=== PATIENT | female | born 1965 | race Caucasian/White ===

== ENCOUNTER 2017-06-02 21:54 | Emergency (ER) | payer OTHER ==
[~2017-06-02] VITALS: Ht 167.6 cm; Wt 70.0 kg
[2017-06-02 22:03] VITALS: BP 150/90; PULSE 73; RESP 18; TEMP 97.9; O2SAT 99
[2017-06-02 22:43] LABS: AUTOMATED NEUTROPHIL # 1.7 TH/MM3 (1.8-7.7); BASOPHIL % 0.8 % (0.0-2.0); EOSINOPHIL # 0.1 TH/MM3 (0-0.4); EOSINOPHIL % 1.1 % (0.0-4.0); HEMATOCRIT 44.2 % (35.0-46.0); HEMO FLAGS DIFF FINAL; LYMPH % 54.1 % (9.0-44.0); LYMPHOCYTE # 2.5 TH/MM3 (1.0-4.8); MEAN CELL VOLUME 104.4 FL (80.0-100.0); MEAN CORPUSCULAR HEMOGLOBIN 35.6 PG (27.0-34.0); MEAN CORPUSCULAR HGB CONC 34.1 % (32.0-36.0); MONO % 6.3 % (0.0-8.0); NEUT % 37.7 % (16.0-70.0); PLATELET COUNT 193 TH/MM3 (150-450); RED BLOOD COUNT 4.23 MIL/MM3 (4.00-5.30); RED CELL DISTRIBUTION WIDTH 13.4 % (11.6-17.2); WHITE BLOOD COUNT 4.6 TH/MM3 (4.0-11.0)
[2017-06-02 23:00] LABS: ALT (GPT) 30 U/L (10-53); ANION GAP 7 MEQ/L (5-15); AST (GOT) 48 U/L (15-37); BLOOD UREA NITROGEN 5 MG/DL (7-18); CHLORIDE 110 MEQ/L (98-107); GLOMERULAR FILTRATION RATE 100 ML/MIN (>89); POTASSIUM 3.4 MEQ/L (3.5-5.1); SODIUM (NA) 143 MEQ/L (136-145)
[2017-06-02 23:05] LABS: ALKALINE PHOSPHATASE 114 U/L (45-117); TOTAL BILIRUBIN ADULT 0.2 MG/DL (0.2-1.0)
[2017-06-02 23:06] LABS: ALCOHOL 370 MG/DL (0-5)
[2017-06-03 00:51] LABS: BACTERIA, URINE MANY /hpf; BLOOD, URINE NEG (NEG); COMMENT (UR) CULTURE INDICATED; CULTURE IF INDICATED CULTURE INDICATED; GLUCOSE,URINE NEG (NEG); KETONE, URINE NEG (NEG); NITRITE,URINE NEG (NEG); SQUAMOUS EPITHELIAL CELL URINE 6 /hpf (0-5); URINE COLOR LIGHT-YELLOW (YELLW/STRAW)
--- NOTE | 2017-06-03 01:46 | PD ---
HPI Chief Complaint: Psychiatric Symptoms Time Seen by Provider: 01:42 Travel History International Travel<30 days: No Contact w/Intl Traveler<30days: No Traveled to known affect area: No History of Present Illness HPI 51-year-old white female presents to emergency department under Curry act by PD. The patient states that she had a argument with her boyfriend. She had talked to her mother. She had made a statement to her mother that she was going to kill her self and that she would see her and haven't. The patient here states that she was intoxicated. She has a history of alcohol abuse. She doesn't really truly want to hurt herself. She was merely upset. She denies any toxic ingestions. No homicidal ideation. No medical complaints. She states that she has to be at work in the morning. PFSH Past Medical History Narrative Medical Alcohol abuse, prolapsed rectum, appendicitis ?: Not Past Surgical History Narrative Surgical Appendectomy, partial colectomy Social History Alcohol Use: Yes (ETOH ON BOARD ) Tobacco Use: Yes (1/2 PACK A DAY ) Substance Use: No Allergies-Medications (Allergen,Severity, Reaction): Coded Allergies: No Known Allergies (Verified Allergy, Unknown, 06/02/17) Review of Systems General / Constitutional: No: Fever Eyes: No: Visual changes HENT: No: Headaches Cardiovascular: No: Chest Pain or Discomfort Respiratory: No: Shortness of Breath Gastrointestinal: No: Abdominal Pain Genitourinary: No: Dysuria Musculoskeletal: No: Pain Skin: No Rash Neurologic: No: Weakness Psychiatric: Positive: Mood Disorder, Substance Abuse, No: Anxiety, Depression , Suicidal Ideations, Disorder of Thought, Homicidal Ideation Endocrine: No: Polydipsia Hematologic/Lymphatic: No: Easy Bruising Physical Exam Narrative GENERAL: Well-nourished, well-developed patient. SKIN: Warm and dry. HEAD: Normocephalic and atraumatic. EYES: No scleral icterus. No injection or drainage. ENT: No nasal drainage noted. Mucous membranes pink. Airway patent. NECK: Supple, trachea midline. Moves head freely without obvious discomfort. CARDIOVASCULAR: Regular rate and rhythm without murmurs, gallops, or rubs. RESPIRATORY: Breath sounds equal bilaterally. No accessory muscle use. GASTROINTESTINAL: Abdomen soft, non-tender, nondistended. EXTREMITIES: No cyanosis or edema. BACK: Nontender without obvious deformity. No CVA tenderness. NEURO: Patient is alert and oriented. no sensorimotor deficits. Nonfocal. Normal speech. PSYCH: No delusions. No auditory or visual hallucinations. Data Data Last Documented VS Vital Signs Date Time Temp Pulse Resp B/P (MAP) Pulse Ox O2 Delivery O2 Flow Rate FiO2 06/02/17 22:03 97.9 73 18 150/90 (110) 99 Orders Orders Complete Blood Count With Diff (06/02/17 22:11) Comprehensive Metabolic Panel (06/02/17 22:11) Urinalysis - C+S If Indicated (06/02/17 22:11) Psych Screen (06/02/17 22:11) Drug Screen, Random Urine (06/02/17 22:11) Alcohol (Ethanol) (06/02/17 22:11) Urine Culture (06/02/17 22:12) Labs Laboratory Tests Test 06/02/17 22:12 White Blood Count 4.6 TH/MM3 Red Blood Count 4.23 MIL/MM3 Hemoglobin 15.1 GM/DL Hematocrit 44.2 % Mean Corpuscular Volume 104.4 FL Mean Corpuscular Hemoglobin 35.6 PG Mean Corpuscular Hemoglobin Concent 34.1 % Red Cell Distribution Width 13.4 % Platelet Count 193 TH/MM3 Mean Platelet Volume 7.8 FL Neutrophils (%) (Auto) 37.7 % Lymphocytes (%) (Auto) 54.1 % Monocytes (%) (Auto) 6.3 % Eosinophils (%) (Auto) 1.1 % Basophils (%) (Auto) 0.8 % Neutrophils # (Auto) 1.7 TH/MM3 Lymphocytes # (Auto) 2.5 TH/MM3 Monocytes # (Auto) 0.3 TH/MM3 Eosinophils # (Auto) 0.1 TH/MM3 Basophils # (Auto) 0.0 TH/MM3 CBC Comment DIFF FINAL Differential Comment Urine Color LIGHT-YELLOW Urine Turbidity HAZY Urine pH 5.0 Urine Specific [place] 1.005 Urine Protein NEG mg/dL Urine Glucose (UA) NEG mg/dL Urine Ketones NEG mg/dL Urine Occult Blood NEG Urine Nitrite NEG Urine Bilirubin NEG Urine Urobilinogen LESS THAN 2.0 MG/DL Urine Leukocyte Esterase TRACE Urine RBC 2 /hpf Urine WBC LESS THAN 1 /hpf Urine Squamous Epithelial Cells 6 /hpf Urine Amorphous Sediment RARE Urine Bacteria MANY /hpf Microscopic Urinalysis Comment CULTURE INDICATED Blood Urea Nitrogen 5 MG/DL Creatinine 0.63 MG/DL Random Glucose 95 MG/DL Total Protein 8.0 GM/DL Albumin 4.1 GM/DL Calcium Level 8.4 MG/DL Alkaline Phosphatase 114 U/L Aspartate Amino Transf (AST/SGOT) 48 U/L Alanine Aminotransferase (ALT/SGPT) 30 U/L Total Bilirubin 0.2 MG/DL Sodium Level 143 MEQ/L Potassium Level 3.4 MEQ/L Chloride Level 110 MEQ/L Carbon Dioxide Level 26.0 MEQ/L Anion Gap 7 MEQ/L Estimat Glomerular Filtration Rate 100 ML/MIN Urine Opiates Screen NEG Urine Barbiturates Screen NEG Urine Amphetamines Screen NEG Urine Benzodiazepines Screen NEG Urine Cocaine Screen NEG Urine Cannabinoids Screen NEG Ethyl Alcohol Level 370 MG/DL MDM Medical Decision Making Medical Screen Exam Complete: Yes Emergency Medical Condition: Yes Medical Record Reviewed: Yes Interpretation(s) Laboratory Tests Test 06/02/17 22:12 White Blood Count 4.6 TH/MM3 Red Blood Count 4.23 MIL/MM3 Hemoglobin 15.1 GM/DL Hematocrit 44.2 % Mean Corpuscular Volume 104.4 FL Mean Corpuscular Hemoglobin 35.6 PG Mean Corpuscular Hemoglobin Concent 34.1 % Red Cell Distribution Width 13.4 % Platelet Count 193 TH/MM3 Mean Platelet Volume 7.8 FL Neutrophils (%) (Auto) 37.7 % Lymphocytes (%) (Auto) 54.1 % Monocytes (%) (Auto) 6.3 % Eosinophils (%) (Auto) 1.1 % Basophils (%) (Auto) 0.8 % Neutrophils # (Auto) 1.7 TH/MM3 Lymphocytes # (Auto) 2.5 TH/MM3 Monocytes # (Auto) 0.3 TH/MM3 Eosinophils # (Auto) 0.1 TH/MM3 Basophils # (Auto) 0.0 TH/MM3 CBC Comment DIFF FINAL Differential Comment Urine Color LIGHT-YELLOW Urine Turbidity HAZY Urine pH 5.0 Urine Specific [place] 1.005 Urine Protein NEG mg/dL Urine Glucose (UA) NEG mg/dL Urine Ketones NEG mg/dL Urine Occult Blood NEG Urine Nitrite NEG Urine Bilirubin NEG Urine Urobilinogen LESS THAN 2.0 MG/DL Urine Leukocyte Esterase TRACE Urine RBC 2 /hpf Urine WBC LESS THAN 1 /hpf Urine Squamous Epithelial Cells 6 /hpf Urine Amorphous Sediment RARE Urine Bacteria MANY /hpf Microscopic Urinalysis Comment CULTURE INDICATED Blood Urea Nitrogen 5 MG/DL Creatinine 0.63 MG/DL Random Glucose 95 MG/DL Total Protein 8.0 GM/DL Albumin 4.1 GM/DL Calcium Level 8.4 MG/DL Alkaline Phosphatase 114 U/L Aspartate Amino Transf (AST/SGOT) 48 U/L Alanine Aminotransferase (ALT/SGPT) 30 U/L Total Bilirubin 0.2 MG/DL Sodium Level 143 MEQ/L Potassium Level 3.4 MEQ/L Chloride Level 110 MEQ/L Carbon Dioxide Level 26.0 MEQ/L Anion Gap 7 MEQ/L Estimat Glomerular Filtration Rate 100 ML/MIN Urine Opiates Screen NEG Urine Barbiturates Screen NEG Urine Amphetamines Screen NEG Urine Benzodiazepines Screen NEG Urine Cocaine Screen NEG Urine Cannabinoids Screen NEG Ethyl Alcohol Level 370 MG/DL Differential Diagnosis MDM: High Differential diagnoses: Schizophrenia, schizoaffective disorder, bipolar, anxiety, depression, adjustment reaction, mood disorder NOS, ODD, depressive disorder NOS, dementia, dementia with agitation, psychosis NOS, substance induced mood disorder, DMDD, Asperger syndrome, infection,electrolyte abnormality, malingering. Narrative Course Mental health screening discussed with the patient. Psychiatric screen ordered. The patient is been medically cleared. This is medical clearance for psychiatric admission, alcohol induced mood disorder, alcohol abuse Diagnosis Primary Impression: Medical clearance for psychiatric admission Additional Impressions: Alcohol-induced mood disorder Alcohol abuse Condition: Stable Chidi Elmore Jun 03, 2017 01:46
[2017-06-03 06:21] VITALS: BP 112/63; PULSE 81; RESP 18; O2SAT 97
--- NOTE | 2017-06-03 11:12 | PD ---
History of Present Illness Chief Complaint: Psychiatric Symptoms Time Seen by Provider: 10:45 Travel History International Travel<30 Days: No Contact w/Intl Traveler<30days: No Known affected area: No Legal Status Legal Status: Curry Act Curry Act Signed By: Sergo Whyte Curry Act Comment: 2016 @ 7218 History of Present Illness: History of Present Illness HPI 51-year-old white female with no reported psychiatric history who presents to emergency department under Curry act initiated by PD. The report alleges that the patient had been drinking and was mad at her boyfriend. She called her mother and stated that she was going to kill herself and made the following statement " see you in heaven". Her mother then called the police and placed under a Curry act. Patient was intoxicated at the time that the Curry act was initiated. Her BAL on arrival was 370. Electronic medical record is reviewed. No previous contact with [facility] psychiatry. The patient was allowed to sober up clinically and secure environment and she presented no behavioral concerns and no suicidality. This morning she is clinically sober. Speech is clear, logical and goal- directed. There is no evidence of any psychosis, no art, and no hypomania. There is no objective clinical symptom of any depression or anxiety. She denies any suicidal or homicidal ideation, intent or plan. She admits to having made this statement but denies that she had any intention of harming herself and acknowledges that she had been drinking that morning and was indeed intoxicated. The patient is requesting to be discharged as she has just started a new job and she is concerned and does not want to be fired from her job. She denies that she drinks on a daily basis. PFSH Past Medical History ?: Not Psychiatric History Psychiatric History Hx Psychiatric Treatment: DENIES any History of Inpatient Treatment: No Guns or firearms in home: No Social History Born and raised in [place]. Completed college. Divorce. Lives with her boyfriend. 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 No previous legal history. Hx Alcohol Use: Yes (ETOH ON BOARD ) Hx Tobacco Use: Yes (1/2 PACK A DAY ) Hx Substance Use: No (2- 3 BEERS DAILY) Substance Use Type: Alcohol (patient denies that she drinks on a daily basis) Hx of Substance Use Treatment: No Family Psychiatric History Negative Allergies-Medications (Allergen,Severity, Reaction): Coded Allergies: No Known Allergies (Verified Allergy, Unknown, 06/02/17) Review of Systems Psychiatric: DENIES: Anxiety, Confusion, Mood changes, Depression, Hallucinations, Agitation, Suicidal Ideation, Homicidal Ideation, Delusions Except as stated in HPI: all other systems reviewed are Neg MDM Medical Decision Making Medical Record Reviewed: Yes Assessment/Plan 51-year-old female with no previous history of psychiatric illness who context of alcohol intoxication made statements that concerned her mother that she may be suicidal. The patient did not make any attempt to harm herself. Patient was significantly intoxicated when she arrived to the ED. After she sobered up clinically the patient presents no evidence of any unstable mental illness as defined under the Curry act. There is no homicidal or suicidal ideation, intent or plan. She is cognitively intact. Patient is future oriented. She does not meet criteria to remain under the Curry act and therefore it will be lifted. Psychiatrically clear for discharge from ED.. Orders Orders Complete Blood Count With Diff (06/02/17 22:11) Comprehensive Metabolic Panel (06/02/17 22:11) Urinalysis - C+S If Indicated (06/02/17 22:11) Psych Screen (06/02/17 22:11) Drug Screen, Random Urine (06/02/17 22:11) Alcohol (Ethanol) (06/02/17 22:11) Urine Culture (06/02/17 22:12) Diet Regular Basic (06/03/17 Breakfast) Diet Progression Instructions (06/03/17 10:46) Diet Regular Basic (06/03/17 Lunch) Results Vital Signs Date Time Temp Pulse Resp B/P (MAP) Pulse Ox O2 Delivery O2 Flow Rate FiO2 06/03/17 06:21 81 18 112/63 (79) 97 Room Air 06/02/17 22:03 97.9 73 18 150/90 (110) 99 Laboratory Tests Test 06/02/17 22:12 White Blood Count 4.6 Red Blood Count 4.23 Hemoglobin 15.1 Hematocrit 44.2 Mean Corpuscular Volume 104.4 Mean Corpuscular Hemoglobin 35.6 Mean Corpuscular Hemoglobin Concent 34.1 Red Cell Distribution Width 13.4 Platelet Count 193 Mean Platelet Volume 7.8 Neutrophils (%) (Auto) 37.7 Lymphocytes (%) (Auto) 54.1 Monocytes (%) (Auto) 6.3 Eosinophils (%) (Auto) 1.1 Basophils (%) (Auto) 0.8 Neutrophils # (Auto) 1.7 Lymphocytes # (Auto) 2.5 Monocytes # (Auto) 0.3 Eosinophils # (Auto) 0.1 Basophils # (Auto) 0.0 CBC Comment DIFF FINAL Differential Comment Urine Color LIGHT-YELLOW Urine Turbidity HAZY Urine pH 5.0 Urine Specific [place] 1.005 Urine Protein NEG Urine Glucose (UA) NEG Urine Ketones NEG Urine Occult Blood NEG Urine Nitrite NEG Urine Bilirubin NEG Urine Urobilinogen LESS THAN 2.0 Urine Leukocyte Esterase TRACE Urine RBC 2 Urine WBC LESS THAN 1 Urine Squamous Epithelial Cells 6 Urine Amorphous Sediment RARE Urine Bacteria MANY Microscopic Urinalysis Comment CULTURE INDICATED Blood Urea Nitrogen 5 Creatinine 0.63 Random Glucose 95 Total Protein 8.0 Albumin 4.1 Calcium Level 8.4 Alkaline Phosphatase 114 Aspartate Amino Transf (AST/SGOT) 48 Alanine Aminotransferase (ALT/SGPT) 30 Total Bilirubin 0.2 Sodium Level 143 Potassium Level 3.4 Chloride Level 110 Carbon Dioxide Level 26.0 Anion Gap 7 Estimat Glomerular Filtration Rate 100 Urine Opiates Screen NEG Urine Barbiturates Screen NEG Urine Amphetamines Screen NEG Urine Benzodiazepines Screen NEG Urine Cocaine Screen NEG Urine Cannabinoids Screen NEG Ethyl Alcohol Level 370 Date/Time Source Procedure Growth Status 06/02/17 22:12 Urine Random Urine Urine Culture Pending Received Diagnosis Primary Impression: alcohol abuse with intoxication Psychiatrically Cleared: Yes Referrals: [facility] (Out patient) call for appointment Medication Management Departure Forms: Work Release, Tests/Procedures Patient Instructions: General Instructions, Alcohol Intoxication (ED) Med/ Other Pt Specific Info: No Meds Exist/No RX given Disposition: 01 DISCHARGE HOME Condition: Stable Lani Malloys Layne Boschjorge luis VELAZQUEZ Jun 03, 2017 11:12
--- NOTE | 2017-06-03 11:58 | PD ---
Physical Exam Time Seen by Provider: 11:56 CAROLINE Evangelista has reviewed the patient, lifted Curry act and cleared the patient for discharge. A friend of the patient is picking her up from the hospital. Data Data Last Documented VS Vital Signs Date Time Temp Pulse Resp B/P (MAP) Pulse Ox O2 Delivery O2 Flow Rate FiO2 06/03/17 06:21 81 18 112/63 (79) 97 Room Air 06/02/17 22:03 97.9 Orders Orders Complete Blood Count With Diff (06/02/17 22:11) Comprehensive Metabolic Panel (06/02/17 22:11) Urinalysis - C+S If Indicated (06/02/17 22:11) Psych Screen (06/02/17 22:11) Drug Screen, Random Urine (06/02/17 22:11) Alcohol (Ethanol) (06/02/17 22:11) Urine Culture (06/02/17 22:12) Diet Regular Basic (06/03/17 Breakfast) Diet Progression Instructions (06/03/17 10:46) Diet Regular Basic (06/03/17 Lunch) Labs Laboratory Tests Test 06/02/17 22:12 White Blood Count 4.6 TH/MM3 Red Blood Count 4.23 MIL/MM3 Hemoglobin 15.1 GM/DL Hematocrit 44.2 % Mean Corpuscular Volume 104.4 FL Mean Corpuscular Hemoglobin 35.6 PG Mean Corpuscular Hemoglobin Concent 34.1 % Red Cell Distribution Width 13.4 % Platelet Count 193 TH/MM3 Mean Platelet Volume 7.8 FL Neutrophils (%) (Auto) 37.7 % Lymphocytes (%) (Auto) 54.1 % Monocytes (%) (Auto) 6.3 % Eosinophils (%) (Auto) 1.1 % Basophils (%) (Auto) 0.8 % Neutrophils # (Auto) 1.7 TH/MM3 Lymphocytes # (Auto) 2.5 TH/MM3 Monocytes # (Auto) 0.3 TH/MM3 Eosinophils # (Auto) 0.1 TH/MM3 Basophils # (Auto) 0.0 TH/MM3 CBC Comment DIFF FINAL Differential Comment Urine Color LIGHT-YELLOW Urine Turbidity HAZY Urine pH 5.0 Urine Specific [place] 1.005 Urine Protein NEG mg/dL Urine Glucose (UA) NEG mg/dL Urine Ketones NEG mg/dL Urine Occult Blood NEG Urine Nitrite NEG Urine Bilirubin NEG Urine Urobilinogen LESS THAN 2.0 MG/DL Urine Leukocyte Esterase TRACE Urine RBC 2 /hpf Urine WBC LESS THAN 1 /hpf Urine Squamous Epithelial Cells 6 /hpf Urine Amorphous Sediment RARE Urine Bacteria MANY /hpf Microscopic Urinalysis Comment CULTURE INDICATED Blood Urea Nitrogen 5 MG/DL Creatinine 0.63 MG/DL Random Glucose 95 MG/DL Total Protein 8.0 GM/DL Albumin 4.1 GM/DL Calcium Level 8.4 MG/DL Alkaline Phosphatase 114 U/L Aspartate Amino Transf (AST/SGOT) 48 U/L Alanine Aminotransferase (ALT/SGPT) 30 U/L Total Bilirubin 0.2 MG/DL Sodium Level 143 MEQ/L Potassium Level 3.4 MEQ/L Chloride Level 110 MEQ/L Carbon Dioxide Level 26.0 MEQ/L Anion Gap 7 MEQ/L Estimat Glomerular Filtration Rate 100 ML/MIN Urine Opiates Screen NEG Urine Barbiturates Screen NEG Urine Amphetamines Screen NEG Urine Benzodiazepines Screen NEG Urine Cocaine Screen NEG Urine Cannabinoids Screen NEG Ethyl Alcohol Level 370 MG/DL MDM Supervised Visit with MORIAH: No Narrative Course CAROLINE Arguelles has reviewed the patient, lifted Patricio villatoro and cleared the patient for discharge. A friend of the patient is picking her up from the hospital. Patient contracts safety. Denies suicidal or homicidal ideations. Patient will be provided community resource packet to [facility] for follow-up. Has friends and family for support. Patient was medically cleared by alternate provider prior to psych screening. Patient has been evaluated by psychiatry and and is now cleared for discharge. Diagnosis Primary Impression: alcohol abuse with intoxication Referrals: [facility] (Out patient) call for appointment Medication Management [facility] Primary Care Physician Psychiatrist Nicci VILLATORO Behavioral Patient Instructions: General Instructions, Alcohol Intoxication (ED) Departure Forms: Work Release, Tests/Procedures Additional Instruction: Contract safety to your self and others Follow-up with psychiatry Follow-up with primary care provider Follow-up with Bradley Judd Return to the emergency department immediately with worsening of symptoms Med/Other Pt SpecificInfo: No Change to Meds, No Meds Exist/No RX given Disposition: 01 DISCHARGE HOME Condition: Stable Rosaura Pa Jun 03, 2017 11:58
== END 2017-06-03 13:08 | disposition home or self-care (01) ==
LOC: NEPJ 21:54
DX: F10.14 Alcohol abuse with alcohol-induced mood disorder (principal); F10.129 Alcohol abuse with intoxication, unspecified; F17.200 Nicotine dependence, unspecified, uncomplicated; N39.0 Urinary tract infection, site not specified; B96.1 Klebsiella pneumoniae [K. pneumoniae] as the cause of diseases classified elsewhere; Y90.8 Blood alcohol level of 240 mg/100 ml or more
CPT/HCPCS: 80053; 80307; 81001; 85025; 87077; 87086; 87186; 99283